=== PATIENT | male | born 1990 | race Caucasian/White ===

== ENCOUNTER 2018-01-24 21:31 | Emergency (ER) | payer SELFPAY ==
[~2018-01-24] VITALS: Ht 172.7 cm; Wt 68.0 kg
[2018-01-24] MEDS: ALBUTEROL SULFATE 2.5 MG/3 ML NEBU NEB ONE (21:44)
[2018-01-24] MEDS: IPRATROPIUM BROMIDE 0.5 MG/2.5 ML NEBU NEB ONE (21:44)
--- NOTE | 2018-01-24 21:45 | NUR ---
Dr. Carrington at bedside for MSE.
[2018-01-24] MEDS: predniSONE 10 MG TABLET PO ONE (21:53)
--- NOTE | 2018-01-24 21:53 | NUR ---
Respiratory at bedside.
[2018-01-24] MEDS ORDERED: IPRATROPIUM BROMIDE 0.5 MG/2.5 ML NEBU ONE (21:56)
[2018-01-24] MEDS ORDERED: ALBUTEROL SULFATE 2.5 MG/3 ML NEBU ONE (21:56)
[2018-01-24] MEDS ORDERED: predniSONE 20 MG TABLET ONE (21:57)
--- NOTE | 2018-01-24 22:23 | NUR ---
Patient discharged to home in stable conditon. Written and verbal after care instructions given. Patient verbalizes understanding of instructions. Pt ambulated out of ER with steady gait, no acute signs of distress, VSS, all belongings taken.
[2018-01-24 22:24] VITALS: BP 151/84
== END 2018-01-24 22:27 | disposition home or self-care (01) ==
LOC: ER 21:31
DX: J45.909 Unspecified asthma, uncomplicated (principal); F17.200 Nicotine dependence, unspecified, uncomplicated
CPT/HCPCS: A4663; J3590; J7512